=== PATIENT | male | born 1965 | race Caucasian/White ===

== ENCOUNTER 2017-04-24 02:21 | Emergency (ER) | payer OTHER ==
[2017-04-24 02:31] VITALS: BP 131/80; PULSE 98; TEMP 97.2; BMI 26.1
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
== END 2017-04-24 04:32 | disposition home or self-care (01) ==
LOC: JER 02:21
DX: S00.03XA Contusion of scalp, initial encounter (principal); W03.XXXA Other fall on same level due to collision with another person, initial encounter; Y93.89 Activity, other specified; Y92.59 Other trade areas as the place of occurrence of the external cause; Y99.8 Other external cause status; I10 Essential (primary) hypertension; E78.00 Pure hypercholesterolemia, unspecified
CPT/HCPCS: 70450-TC; 99281-25

== ENCOUNTER 2017-11-15 12:57 | Emergency (ER) | payer OTHER ==
[2017-11-15 13:06] VITALS: BMI 28.1
[2017-11-15] MEDS ORDERED: ACETAMINOPHEN 1000 MG/100 ML VIAL (NON FORMULARY) IVPB ONE (13:32)
--- NOTE | 2017-11-15 13:42 | PDOC ---
History of Present Illness - General Chief Complaint: Injury Stated Complaint: FALL,BACK PAIN Time Seen by Provider: 11/15/17 13:21 History Source: Patient Exam Limitations: No Limitations - History of Present Illness Initial Comments: 11/15/17 13:37 This is a 52 YOM with h/o HTN and HLD who p/w left and midline lower back pain worsening since yesterday when he suffered a fall from 4 ft up on a ladder, landing flat on his back on the long edge of a marble table and then falling to the floor, which occurred at about 3:30 pm. He has had worsening pain now up to 10/10 worst in the left lower back, exacerbated by changing position and walking. He denies any preceding symptoms and notes that he fell because the ladder began tipping backward. He was able to pick himself up after the incident and ambulate but this did cause him worsened pain. He has not been medically evaluated since then. He tried taking ibuprofen and Tylenol at home without pain relief, last doses were last night, and his pain kept him from sleeping last night. He denies any LOC, striking his head, headache, neck pain, shortness of breath (other than feeling like he had the wind knocked out of him just after the fall, which has since resolved), chest pain, abdominal pain, blood in the urine, n/t/w focally, or other symptoms. Past History - Past Medical History Allergies/Adverse Reactions: Allergies Allergy/AdvReac Type Severity Reaction Status Date / Time No Known Allergies Allergy Verified 11/15/17 13:02 Home Medications: Ambulatory Orders Atorvastatin Calcium 40 mg PO HS 11/15/17 Nebivolol [Bystolic -] 10 mg PO DAILY 11/15/17 Olmesartan Medoxomil [Benicar] 10 mg PO DAILY 11/15/17 Valsartan [Diovan] 160 mg PO DAILY 11/15/17 COPD: No DVT: No - Suicide/Smoking/Psychosocial Hx Smoking History: Current every day smoker Have you smoked in the past 12 months: Yes Number of Cigarettes Smoked Daily: 40 Information on smoking cessation initiated: Yes 'Breaking Loose' booklet given: 11/15/17 Hx Alcohol Use: No Drug/Substance Use Hx: No Substance Use Type: None Review of Systems - Review of Systems Able to Perform ROS?: Yes Constitutional: No: Chills, Fever, Unexplained wgt Loss HEENTM: No: Nose Congestion, Throat Pain Respiratory: No: Cough, Shortness of Breath Cardiac (ROS): No: Chest Pain, Palpitations ABD/GI: No: Constipated, Diarrhea, Nausea, Vomiting : No: Burning, Dysuria Musculoskeletal: Yes: Back Pain. No: Neck Pain Integumentary: Yes: Bruising. No: Rash Neurological: No: Headache, Numbness, Tingling, Weakness, Dizziness Endocrine: No: Unexplained Weight Gain, Unexplained Weight Loss *Physical Exam - Vital Signs Last Vital Signs Temp Pulse Resp BP Pulse Ox 99.1 F 69 18 136/84 100 11/15/17 13:03 11/15/17 13:03 11/15/17 13:03 11/15/17 13:11/15/17 13:03 - Physical Exam General Appearance: Yes: Nourished, Appropriately Dressed, Mild Distress, Other (pleasant adult male who appears mildly uncomfortable at rest and moderately uncomfortable when repositioning, answers questions appropriately, accompanied by daughter) HEENT: positive: EOMI, NEAL, Normal Voice, Hearing Grossly Normal, Other (no scalp contusion, no cephalohematoma, no scalp laceration, no raccoon eyes, no hester sign, no hemotympanum, no CSF rhinorrhea/otorrhea). negative: Scleral Icterus (R), Scleral Icterus (L), Nasal Congestion Neck: positive: Trachea midline, Supple. negative: Tender, Rigid Respiratory/Chest: positive: Lungs Clear, Normal Breath Sounds. negative: Respiratory Distress, Decreased Breath Sounds, Crackles, Rhonchi, Stridor, Wheezing Cardiovascular: positive: Regular Rhythm, Regular Rate, S1, S2. negative: Edema , JVD, Murmur Gastrointestinal/Abdominal: positive: Normal Bowel Sounds, Soft, Other (pelvis stable). negative: Tender, Organomegaly, Pulsatile Mass, Distended, Guarding Musculoskeletal: positive: Normal Inspection, Decreased Range of Motion (lumbar) , Other (no stepoff or deformity). negative: Vertebral Tenderness Extremity: positive: Normal Capillary Refill, Normal Inspection, Normal Range of Motion. negative: Tender, Cyanosis Integumentary: positive: Normal Color, Dry, Warm, Ecchymosis (left inferior flank developing ecchymosis over a 12x7 cm area extending to the midline, also there is about a 12x8 cm area of superficial skin avulsion with linear excoriations to the superior lumbar back overlying both the left and right paraspinous area and the midline). negative: Erythema, Rash Neurologic: positive: personnel arbitrator II-XII NML intact, Fully Oriented, Alert, Normal Mood/ Affect, Normal Response, Motor Strength 5/5, Finger to Nose, Other (moving all extremities). negative: EOM Palsy, Facial Droop, Numbness, Sensory Deficit, Confused, Disoriented ED Treatment Course - LABORATORY CBC & Chemistry Diagram: 11/15/17 14:00 11/15/17 13:32 - RADIOLOGY Radiology Studies Ordered: Category Date Time Status CHEST PA & LAT [RAD] Stat Radiology 11/15/17 13:35 Ordered SPINE-LUMBAR SACRAL [RAD] Stat Radiology 11/15/17 13:35 Ordered SPINE-THORACIC [RAD] Stat Radiology 11/15/17 13:35 Ordered Medical Decision Making - Medical Decision Making Adult male Pt p/w physical trauma. Initial Vital Signs Temp Pulse Resp BP Pulse Ox 99.1 F 69 18 136/84 100 11/15/17 13:03 11/15/17 13:03 11/15/17 13:03 11/15/17 13:03 11/15/17 13:03 Exam: As noted in Physical Exam section. DDX IBNLT: Spinal fracture or dislocation, renal laceration or contusion, blunt abdominal or chest trauma, sacral or pelvis fracture, rib fracture, simple back contusion with skin avulsion/road rash, etc. W/U ordered: CT chest/abdomen/pelvis, CT recons C/T/L spine, labs as noted below TX ordered: Ofirmev EKG: Reviewed; results as noted in ECG Review section. 11/15/17 15:17 Patient still unable to give urine sample. 1 liter IVF ordered. Reassessment: Patient states somewhat improved after Tylenol but some residual. 11/15/17 16:10 On initial read of the CT studies the patient has two left inferior posterior rib fxr and one inferior lateral rib fxr. No flail chest; no ribs with multiple fxr in one single rib. Also on CT studies there are three areas concerning for left lateral process fractures. We have spoken with [facility] neurosurgeon Jean Avila who reviews CT C/T/L spine images and recommends MRI. BAKARI lai calls to MRI and [facility] Radiologist for approval. 2 mg morphine IV push given as patient notes continued pain. CT C/A/P: IMPRESSION: 1. Mild chronic lung disease with no acute pathology of the chest. 2. No acute pathology within the abdomen or pelvis. Limited study as described above. Per the ED team's read of the study: there are left posterior 11th and 12th rib fractures and a left lateral 10th rib fracture at the mid- to posterior- axillary line. CT C/T/L spine: IMPRESSION: 1. Normal CT scan of the cervical spine with no fracture or acute pathology. 2. Fracture anterior portion of the T12 vertebral body with no significant displacement of fracture fragments. The fracture does not extend posteriorly into the spinal canal. 3. Fractures of the left transverse processes of T 12 and L1. 4. Fractures of the left posterior 11th and 12th ribs. 11/15/17 16:49 Dr. Mckeon [facility] radiologist called, we spoke about Dr. Avila's recommendation , MRI approved by Radiologist. Laboratory Tests 11/15/17 11/15/17 11/15/17 13:32 14:00 16:25 WBC 10.4 H RBC 4.71 Hgb 15.0 Hct 44.0 MCV 93.4 MCH 31.8 MCHC 34.0 RDW 13.3 Plt Count 248 MPV 8.4 Absolute Neuts (auto) 7.5 Neutrophils % 72.6 Lymphocytes % 17.2 Monocytes % 9.5 Eosinophils % 0.3 Basophils % 0.4 Nucleated RBC % 0 Sodium 139 Potassium 4.2 Chloride 105 Carbon Dioxide 25 Anion Gap 9 BUN 15 Creatinine 0.7 Creat Clearance w eGFR > 60 Random Glucose 105 Calcium 8.7 Total Bilirubin 1.1 H AST 27 ALT 31 Alkaline Phosphatase 93 Creatine Kinase 281 Creatine Kinase Index 0.7 CK-MB (CK-2) 2.02 Troponin I < 0.02 Total Protein 7.2 Albumin 3.6 Urine Color Dkyellow Urine Appearance Clear Urine pH 5.0 Ur Specific [place] 1.036 H Urine Protein Negative Urine Glucose (UA) Negative Urine Ketones Negative Urine Blood Negative Urine Nitrite Negative Urine Bilirubin Negative Urine Urobilinogen 2.0 Ur Leukocyte Esterase Negative Completed MRI questionnaire, patient has only titanium screws in elbow. Spoke with EM Bobo who is on his way to [facility]. Patient's care endorsed to oncoming resident Donovan Melgar at the end of my shift pending MRI. Dr. Melgar will further consult with Dr. Avila when MRI results. *DC/Admit/Observation/Transfer Diagnosis at time of Disposition: Multiple transverse process fractures Fall from ladder Qualifiers: Encounter type: initial encounter Qualified Code(s): W11.XXXA - Fall on and from ladder, initial encounter Back contusion Qualifiers: Encounter type: initial encounter Laterality: left Qualified Code(s): S20.222A - Contusion of left back wall of thorax, initial encounter Multiple rib fractures Qualifiers: Encounter type: initial encounter Fracture type: closed Laterality: right Qualified Code(s): S22.41XA - Multiple fractures of ribs, right side, initial encounter for closed fracture - Discharge Dispostion Condition at time of disposition: Stable - Referrals Referrals: Jose Rubio MD [Primary Care Provider] - Jean Collins MD, FAANS [Staff Physician] - - Patient Instructions Additional Instructions: You were seen in the ED and admitted for the assessment of your spine and rib injuries. A CT scan showed fractures of your spine at the T12 and L1 levels as well as fractures of the 11th and 12th ribs. An MRI was done and showed that these fractures are not pushing on your spinal cord. We have consulted with a neurosurgeon, Dr. Collins, who believes that these fractures are not dangerous enough to keep you in the hospital. You may take ibuprofen or Tylenol for the pain. Please resume taking the rest of your home medications as prescribed. Please follow up with Dr. Collins in his office within one week to discuss the possible treatments for your fractures, if there are any. Please follow up with your primary care physician within one week of discharge. You should refrain from heavy lifting, strenuous exercise or use of ladders until you see Dr. Collins. If you begin to experience worsening pain, loss of bowel or bladder function, lower extremity weakness or numbness or if any of your symptoms get worse, please call your doctor or return to the emergency department. - Post Discharge Activity
[2017-11-15] MEDS ORDERED: ACETAMINOPHEN INJECTION 100 ML IVPB ONE (13:48)
[2017-11-15 14:12] LABS: BASO % 0.4 % (0-2.0); EOS % 0.3 % (0-4.5); LYMPH % 17.2 % (8-40); MCH 31.8 pg (25.7-33.7); MEAN CELL VOLUME 93.4 fl (80-96); MEAN PLT VOLUME 8.4 fl (7.5-11.1); MONO % 9.5 % (3.8-10.2); NEUT % 72.6 % (42.8-82.8); PLATELET COUNT 248 K/MM3 (134-434); RBC 4.71 M/mm3 (4.00-5.60); RDW 13.3 % (11.9-15.9); WHITE BLOOD COUNT 10.4 K/mm3 (4.0-10.0)
[2017-11-15 14:30] LABS: ALBUMIN 3.6 g/dl (3.4-5.0); ANION GAP 9 MMOL/L (8-16); BILIRUBIN,TOTAL 1.1 mg/dL (0.2-1.0); BLOOD UREA NITROGEN 15 mg/dL (7-18); CALCIUM 8.7 mg/dL (8.5-10.1); CHLORIDE 105 mmol/L (98-107); CO2 25 mmol/L (21-32); CREATININE 0.7 mg/dL (0.7-1.3); GLUCOSE,RANDOM 105 mg/dL (74-106); POTASSIUM 4.2 mmol/L (3.5-5.1); SGOT/AST 27 U/L (15-37); SGPT/ALT 31 U/L (12-78); SODIUM 139 mmol/L (136-145); TOT PROT 7.2 g/dl (6.4-8.2)
[2017-11-15 14:32] LABS: ALK PHOS 93 U/L (45-117)
--- NOTE | 2017-11-15 14:39 | PDOC ---
Attending Attestation - Resident Resident Name: Federica Rasheed - ED Attending Attestation I have performed the following: I have examined & evaluated the patient, The case was reviewed & discussed with the resident, I agree w/resident's findings & plan, Exceptions are as noted - HPI HPI: 52 yo M presents s/p fall 4 feet onto a granite countertop from a ladder. He was trying to reach something and the ladder began to tip. C/o pain to L mid- back, worse with any movement. He [place] seek [place] He presents today due to pain and difficulty sleeping. - Physicial Exam PE: GENERAL: Awake, alert, and fully oriented, in no acute distress HEAD: No signs of trauma EYES: PERRLA, EOMI, sclera anicteric, conjunctiva clear ENT: Auricles normal inspection, hearing grossly normal, nares patent, oropharynx clear without exudates. Moist mucosa NECK: Normal ROM, supple, no lymphadenopathy, JVD, or masses LUNGS: Breath sounds equal, clear to auscultation bilaterally. No wheezes, and no crackles HEART: Regular rate and rhythm, normal S1 and S2, no murmurs, rubs or gallops ABDOMEN: Soft, nontender, normoactive bowel sounds. No guarding, no rebound. No masses MSK: +Midline tenderness to lower thoracic and upper lumbar spine. +Large ecchymotic area to L flank. Extremities with normal range of motion, no edema. No clubbing or cyanosis. No cords, erythema, or tenderness NEUROLOGICAL: Cranial nerves II through XII grossly intact. Normal speech, normal gait. Motor and sensation intact. SKIN: Warm, Dry, normal turgor, no rashes or lesions noted. - Medical Decision Making CT chest, a/p, and c/t/l-spine obtained based on mechanism. Found to have 3 rib fractures (no flail chest) and 2 transverse process fx to spine. Spinal fx discussed with Dr. Collins, recommended MRI to evaluate the disk. For rib fractures, incentive spirometer and pain medication.
[2017-11-15] MEDS ORDERED: SODIUM CHLORIDE 0.9% 500 ML INFUS.BAG IV ONE (15:14)
[2017-11-15] MEDS ORDERED: morphine CARPU-JECT 4 MG/1 ML DISP.SYRIN IVPUSH ONE (16:35)
[2017-11-15] MEDS ORDERED: MORPHINE SULFATE 2 MG/ML VIAL ONE (16:39)
[2017-11-15 16:43] LABS: URINE APPEARANCE CLEAR; URINE BILIRUBIN NEGATIVE (<2.0 mg/dL); URINE COLOR DKYELLOW; URINE GLUCOSE (UA) NEGATIVE (NEGATIVE); URINE KETONE NEGATIVE (NEGATIVE); URINE LEUK ESTERASE NEGATIVE (NEGATIVE); URINE NITRITE NEGATIVE (NEGATIVE); URINE PROTEIN NEGATIVE (NEGATIVE)
--- NOTE | 2017-11-15 19:00 | PDOC ---
*Physical Exam - Vital Signs Last Vital Signs Temp Pulse Resp BP Pulse Ox 99.1 F 60 19 154/88 100 11/15/17 13:03 11/15/17 16:58 11/15/17 16:58 11/15/17 16:58 11/15/17 16:58 <Hunter Yap - Last Filed: 11/15/17 21:16> - Vital Signs Last Vital Signs Temp Pulse Resp BP Pulse Ox 99.1 F 60 19 154/88 100 11/15/17 13:03 11/15/17 16:58 11/15/17 16:58 11/15/17 16:58 11/15/17 16:58 <Dominik Melgar - Last Filed: 11/15/17 21:57> ED Treatment Course - LABORATORY CBC & Chemistry Diagram: 11/15/17 14:00 11/15/17 13:32 - ADDITIONAL ORDERS Additional order review: Laboratory Results 11/15/17 11/15/17 16:25 13:32 Sodium 139 Potassium 4.2 Chloride 105 Carbon Dioxide 25 Anion Gap 9 BUN 15 Creatinine 0.7 Creat Clearance w eGFR > 60 Random Glucose 105 Calcium 8.7 Total Bilirubin 1.1 H AST 27 ALT 31 Alkaline Phosphatase 93 Creatine Kinase 281 Creatine Kinase Index 0.7 CK-MB (CK-2) 2.02 Troponin I < 0.02 Total Protein 7.2 Albumin 3.6 Urine Color Dkyellow Urine Appearance Clear Urine pH 5.0 Ur Specific [place] 1.036 H Urine Protein Negative Urine Glucose (UA) Negative Urine Ketones Negative Urine Blood Negative Urine Nitrite Negative Urine Bilirubin Negative Urine Urobilinogen 2.0 Ur Leukocyte Esterase Negative 11/15/17 14:00 RBC 4.71 MCV 93.4 MCHC 34.0 RDW 13.3 MPV 8.4 Neutrophils % 72.6 Lymphocytes % 17.2 Monocytes % 9.5 Eosinophils % 0.3 Basophils % 0.4 - Medications Given in the ED: ED Medications Discontinued Medications Generic Name Dose Route Start Last Admin Trade Name Freq PRN Reason Stop Dose Admin Acetaminophen 1,000 mg 11/15/17 13:32 11/15/17 14:04 Ofirmev Injection - IVPB 11/15/17 13:33 1,000 mg ONCE ONE Administration Morphine Sulfate 2 mg 11/15/17 16:35 11/15/17 16:43 Morphine Injection - IVPUSH 11/15/17 16:36 2 mg ONCE ONE Administration Sodium Chloride 1,000 ml 11/15/17 15:14 11/15/17 15:21 Normal Saline - IV 11/15/17 15:15 1,000 ml ONCE ONE Administration <Hunter Yap - Last Filed: 11/15/17 21:16> - LABORATORY CBC & Chemistry Diagram: 11/15/17 14:00 11/15/17 13:32 - ADDITIONAL ORDERS Additional order review: Laboratory Results 11/15/17 11/15/17 16:25 13:32 Sodium 139 Potassium 4.2 Chloride 105 Carbon Dioxide 25 Anion Gap 9 BUN 15 Creatinine 0.7 Creat Clearance w eGFR > 60 Random Glucose 105 Calcium 8.7 Total Bilirubin 1.1 H AST 27 ALT 31 Alkaline Phosphatase 93 Creatine Kinase 281 Creatine Kinase Index 0.7 CK-MB (CK-2) 2.02 Troponin I < 0.02 Total Protein 7.2 Albumin 3.6 Urine Color Dkyellow Urine Appearance Clear Urine pH 5.0 Ur Specific [place] 1.036 H Urine Protein Negative Urine Glucose (UA) Negative Urine Ketones Negative Urine Blood Negative Urine Nitrite Negative Urine Bilirubin Negative Urine Urobilinogen 2.0 Ur Leukocyte Esterase Negative 11/15/17 14:00 RBC 4.71 MCV 93.4 MCHC 34.0 RDW 13.3 MPV 8.4 Neutrophils % 72.6 Lymphocytes % 17.2 Monocytes % 9.5 Eosinophils % 0.3 Basophils % 0.4 - Medications Given in the ED: ED Medications Discontinued Medications Generic Name Dose Route Start Last Admin Trade Name Wyatt PRN Reason Stop Dose Admin Acetaminophen 1,000 mg 11/15/17 13:32 11/15/17 14:04 Ofirmev Injection - IVPB 11/15/17 13:33 1,000 mg ONCE ONE Administration Morphine Sulfate 2 mg 11/15/17 16:35 11/15/17 16:43 Morphine Injection - IVPUSH 11/15/17 16:36 2 mg ONCE ONE Administration Sodium Chloride 1,000 ml 11/15/17 15:14 11/15/17 15:21 Normal Saline - IV 11/15/17 15:15 1,000 ml ONCE ONE Administration <Dominik Melgar - Last Filed: 11/15/17 21:57> Medical Decision Making - Medical Decision Making 11/15/17 21:[address] Farhan Collins, neurosurgeon front office administrator, awaiting call back. <Hunter Yap - Last Filed: 11/15/17 21:16> - Medical Decision Making 11/15/17 19:[address] Kitchen. Patient is a 52M with history of HTN and HLD here today with multiple rib fractures and traverse process fracture. Pending MRI and Dr Avila consult for final dispo. 11/15/17 21:42 Multiple attempts to reach Dr Collins for final dispo. Service and contacted. 11/15/17 21:53 Dr Collins contacted. Patient is good for discharge as long as pain is controlled. Will follow as outpatient. Pending discharge from medicine team for ED OBS. <Dominik Melgar - Last Filed: 11/15/17 21:57> *DC/Admit/Observation/Transfer - Attestations Scribe Attestion: 11/15/17 21:16 Documentation prepared by Hunter Yap, acting as medical device sales representative for Samantha Rivera MD. <Hunter Yap - Last Filed: 11/15/17 21:16> <Dominik Melgar - Last Filed: 11/15/17 21:57> Diagnosis at time of Disposition: Multiple transverse process fractures Fall from ladder Qualifiers: Encounter type: initial encounter Qualified Code(s): W11.XXXA - Fall on and from ladder, initial encounter Back contusion Qualifiers: Encounter type: initial encounter Laterality: left Qualified Code(s): S20.222A - Contusion of left back wall of thorax, initial encounter Multiple rib fractures Qualifiers: Encounter type: initial encounter Fracture type: closed Laterality: right Qualified Code(s): S22.41XA - Multiple fractures of ribs, right side, initial encounter for closed fracture - Discharge Dispostion Condition at time of disposition: Guarded - Referrals Referrals: Jose Rubio MD [Primary Care Provider] - - Patient Instructions Additional Instructions: You were seen in the ER for a traumatic injury. We took CT scans which showed no new problems. We did lab work on your blood and urine and there were no concerning findings. After our assessment, we do not believe you are having a medical emergency any longer at this time, and we believe you are safe to go home. Take Motrin and Tylenol as needed for pain. Follow up with your PCP in the next 1-3 days. Please follow up with the orthopedist clinic if you have worsening pain (we are providing referral information in this information packet ). Please come back to the ER at any time, 24 hours a day, for any new or worsening symptoms, especially severe pain or hand numbness and tingling. If you are having symptoms that make it unsafe to drive, please call 911. - Post Discharge Activity
--- NOTE | 2017-11-15 21:32 | PDOC ---
*Physical Exam - Vital Signs Last Vital Signs Temp Pulse Resp BP Pulse Ox 99.1 F 60 19 154/88 100 11/15/17 13:03 11/15/17 16:58 11/15/17 16:58 11/15/17 16:58 11/15/17 16:58 ED Treatment Course - LABORATORY CBC & Chemistry Diagram: 11/15/17 14:00 11/15/17 13:32 - ADDITIONAL ORDERS Additional order review: Laboratory Results 11/15/17 11/15/17 16:25 13:32 Sodium 139 Potassium 4.2 Chloride 105 Carbon Dioxide 25 Anion Gap 9 BUN 15 Creatinine 0.7 Creat Clearance w eGFR > 60 Random Glucose 105 Calcium 8.7 Total Bilirubin 1.1 H AST 27 ALT 31 Alkaline Phosphatase 93 Creatine Kinase 281 Creatine Kinase Index 0.7 CK-MB (CK-2) 2.02 Troponin I < 0.02 Total Protein 7.2 Albumin 3.6 Urine Color Dkyellow Urine Appearance Clear Urine pH 5.0 Ur Specific [place] 1.036 H Urine Protein Negative Urine Glucose (UA) Negative Urine Ketones Negative Urine Blood Negative Urine Nitrite Negative Urine Bilirubin Negative Urine Urobilinogen 2.0 Ur Leukocyte Esterase Negative 11/15/17 14:00 RBC 4.71 MCV 93.4 MCHC 34.0 RDW 13.3 MPV 8.4 Neutrophils % 72.6 Lymphocytes % 17.2 Monocytes % 9.5 Eosinophils % 0.3 Basophils % 0.4 - Medications Given in the ED: ED Medications Discontinued Medications Generic Name Dose Route Start Last Admin Trade Name [place]att PRN Reason Stop Dose Admin Acetaminophen 1,000 mg 11/15/17 13:32 11/15/17 14:04 Ofirmev Injection - IVPB 11/15/17 13:33 1,000 mg ONCE ONE Administration Morphine Sulfate 2 mg 11/15/17 16:35 11/15/17 16:43 Morphine Injection - IVPUSH 11/15/17 16:36 2 mg ONCE ONE Administration Sodium Chloride 1,000 ml 11/15/17 15:14 11/15/17 15:21 Normal Saline - IV 11/15/17 15:15 1,000 ml ONCE ONE Administration Medical Decision Making - Medical Decision Making 11/15/17 21:29 Received sign out from Dr. Monsivais pending MRI imaging. in summary, 52 YOM s/ p fall from ladder c/o chest and back pain. CT [place] scans with T spinous process fx, left posterior rib fx x2 NSG consult with Dr. Collins - requested MRI to eval for spinal cord injury/ pathology and elucidation of Spine fractures. nonurgent management, may followup as outpatient. Rib fx management - analgesia and IS, breathing exercises. MRI T and L spine results 930pm: acute nondisplaced anterior superior end plate fx of T12 w/o compression or deformity. degenerative spondylosis, small left central paracentral disc protrusion at T7-8 with mild cord compression, otherwise no spinal cord myelopathy changes. L spine spondylosis and DDD, small central disc protrusion at L4-5. dispo: ED observation, past 8 hours so admitted to hospitalist, seen by team and Dr. Pulido team. 11/15/17 22:18 11/15/17 22:33 *DC/Admit/Observation/Transfer Diagnosis at time of Disposition: Multiple transverse process fractures Fall from ladder Qualifiers: Encounter type: initial encounter Qualified Code(s): W11.XXXA - Fall on and from ladder, initial encounter Back contusion Qualifiers: Encounter type: initial encounter Laterality: left Qualified Code(s): S20.222A - Contusion of left back wall of thorax, initial encounter Multiple rib fractures Qualifiers: Encounter type: initial encounter Fracture type: closed Laterality: right Qualified Code(s): S22.41XA - Multiple fractures of ribs, right side, initial encounter for closed fracture - Discharge Dispostion Condition at time of disposition: Stable - Referrals - Patient Instructions - Post Discharge Activity
--- NOTE | 2017-11-15 22:09 | PN ---
Teaching Attending Note Name of Resident: Shefali Phillips ATTENDING PHYSICIAN STATEMENT I saw and evaluated the patient. I reviewed the resident's note and discussed the case with the resident. I agree with the resident's findings and plan as documented. SUBJECTIVE: Patient is a 52 year old man with history of tobacco use, HTN and HLD who presents with left and midline lower back pain after falling off a ladder that slipped from a counter top yesterday in the [facility]. Pain has been worsening since yesterday. He landed flat on his back on the long edge of a marble table and then falling to the floor - had the "wind" knocked out of him but didnot loose consciousness and did not hit his head. Pain now up to 10/10 worst in the left lower back, exacerbated by changing position and walking. He was able to pick himself up after the incident and ambulate but this did cause him worsened pain. He could get to a hospital yesterday and his family picked up from the [facility]. He took ibuprofen and Tylenol at home without pain relief. At this time he has pain but no headache, neck pain, shortness of breath, chest pain, abdominal pain, blood in the urine, vomiting, urinary or fecal incontinence. In the ER, CT [place] scans showed with T spinous process fracture, and 2 rib fractures. MRI T and L spine showed; acute nondisplaced anterior superior end plate fracture of T12 without compression or deformity; degenerative spondylosis , small left central paracentral disc protrusion at T7-8 with mild cord compression, otherwise no spinal cord myelopathy changes. L spine spondylosis and DDD, small central disc protrusion at L4-5. ER staff spoke to the Neurosurgeon Dr. Collins - who says patient can be discharged to follow up in the office. OBJECTIVE: Alert Vital Signs Period Temp Pulse Resp BP Sys/Hobson Pulse Ox Last 24 Hr 98.2 F-99.1 F 60-74 18-20 136-154/82-88 98-100 HEENT: No Jaundice, eye redness or discharge, PERRLA, EOMI. Normocephalic, atraumatic. External ears are normal and hearing is grossly intact. No nasal discharge. Neck: Supple, nontender. No palpable adenopathy or thyromegaly. No JVD Chest: Good effort. Clear to auscultation and percussion. Bruisies on the back in the lower chest and lumbar areas - tender - no swelling. Heart: Regular. No S3, rub or murmur Abdomen: Not distended, soft, nontender and no HSM. No rebound or guarding. Normoactive bowel sounds. Ext: Peripheral pulses intact. No leg edema. Skin: Warm and dry. No petechiae, rash or ecchymosis. Neuro: Alert. Oriented x3. CN 2-12 grossly intact. Sensation grossly intact in all four extremities and DTR are symmetric. Home Medications Medication Instructions Recorded Atorvastatin Calcium 40 mg PO HS 11/15/17 Nebivolol [Bystolic -] 10 mg PO DAILY 11/15/17 Olmesartan Medoxomil [Benicar] 10 mg PO DAILY 11/15/17 Valsartan [Diovan] 160 mg PO DAILY 11/15/17 Abnormal Lab Results 11/15/17 11/15/17 11/15/17 13:32 14:00 16:25 WBC 10.4 H Total Bilirubin 1.1 H Ur Specific [place] 1.036 H ASSESSMENT AND PLAN: 1. Fall - Trauma to the back with rib and vertebral fractures. Patient being discharged. To follow up with neurosurgeon and his PCP. Tylenol and warm compress for pain. Asked to return to the ER if symptoms worsen or any new symptoms like SOB emerge. 2. Tobacco Use We will provide patient all the necessary assistance to facilitate smoking cessation and prescribe Nicotine patch. 3. Advance directives - Full code
[2017-11-15 22:53] VITALS: BP 136/82; PULSE 72; TEMP 98.2
--- NOTE | 2017-11-15 23:18 | HP ---
CHIEF COMPLAINT: Back pain s/p trauma PCP: Dr. Rubio HISTORY OF PRESENT ILLNESS: The patient is a 52 yo m w/ PMH HTN and HLD who comes to the ED c/o left flank and back pain since falling from a ladder yesterday. The patient was working in his backyard on a ladder which was placed on the top of a counter. The ladder slipped out from underhim and he fell, striking his back and side on a marble countertop before falling to the floor. Patient denies head trauma or LOC. The patient was able to ambulate after the fall, but decided to seek medical attention when OTC Ibuprofen and tylenol did not relieve the pain. The patient denies chest pain, SOB, abdominal pain, loss of bowel or bladder function, lower extremity weakness or tingling. ER course was notable for: (1) CT showing transverse vertebral body fractures at T12 and L1, MRI showing the same without displacement or nerve impingement. Recent Travel: none PAST MEDICAL HISTORY: see HPI PAST SURGICAL HISTORY: denies Social History: Smoking: current everyday smoker Alcohol: social Drugs: denies Family History: non-contributory Allergies No Known Allergies Allergy (Verified 11/15/17 13:02) HOME MEDICATIONS: Home Medications Medication Instructions Recorded Atorvastatin Calcium 40 mg PO HS 11/15/17 Nebivolol [Bystolic -] 10 mg PO DAILY 11/15/17 Olmesartan Medoxomil [Benicar] 10 mg PO DAILY 11/15/17 Valsartan [Diovan] 160 mg PO DAILY 11/15/17 REVIEW OF SYSTEMS CONSTITUTIONAL: Absent: fever, chills, diaphoresis, generalized weakness, malaise, loss of appetite, weight change HEENT: Absent: rhinorrhea, nasal congestion, throat pain, throat swelling, difficulty swallowing, mouth swelling, ear pain, eye pain, visual changes CARDIOVASCULAR: Absent: chest pain, syncope, palpitations, irregular heart rate, lightheadedness , peripheral edema RESPIRATORY: Absent: cough, shortness of breath, dyspnea with exertion, orthopnea, wheezing, stridor, hemoptysis GASTROINTESTINAL: Absent: abdominal pain, abdominal distension, nausea, vomiting, diarrhea, constipation, melena, hematochezia GENITOURINARY: Absent: dysuria, frequency, urgency, hesitancy, hematuria, flank pain, genital pain MUSCULOSKELETAL: Absent: myalgia, arthralgia, joint swelling, neck pain SKIN: Absent: rash, itching, pallor HEMATOLOGIC/IMMUNOLOGIC: Absent: easy bleeding, easy bruising, lymphadenopathy, frequent infections ENDOCRINE: Absent: unexplained weight gain, unexplained weight loss, heat intolerance, cold intolerance NEUROLOGIC: Absent: headache, focal weakness or paresthesias, dizziness, unsteady gait, seizure, mental status changes, bladder or bowel incontinence PSYCHIATRIC: Absent: anxiety, depression, suicidal or homicidal ideation, hallucinations. PHYSICAL EXAMINATION Vital Signs - 24 hr 11/15/17 11/15/17 11/15/17 13:03 16:58 19:05 Temperature 99.1 F 98.8 F Pulse Rate 69 Pulse Rate [ 60 74 Right Brachial] Respiratory 18 19 18 Rate Blood Pressure 136/84 Blood Pressure 154/88 138/88 [Right Arm] O2 Sat by Pulse 100 100 98 Oximetry (%) 11/15/17 22:52 Temperature 98.2 F Pulse Rate Pulse Rate [ 72 Right Brachial] Respiratory 20 Rate Blood Pressure Blood Pressure 136/82 [Right Arm] O2 Sat by Pulse 100 Oximetry (%) GENERAL: Awake, alert, and fully oriented, in no acute distress. HEAD: Normal with no signs of trauma. EYES: Pupils equal, round and reactive to light, extraocular movements intact, sclera anicteric, conjunctiva clear. No lid lag. EARS, NOSE, THROAT: oropharynx clear without exudates. Moist mucous membranes. NECK: Normal range of motion, supple without lymphadenopathy, JVD, or masses. LUNGS: Breath sounds equal, clear to auscultation bilaterally. No wheezes, and no crackles. No accessory muscle use. HEART: Regular rate and rhythm, normal S1 and S2 without murmur, rub or gallop. ABDOMEN: Soft, nontender, not distended, normoactive bowel sounds, no guarding, no rebound, no masses. No hepatomegaly or splenomegaly. MUSCULOSKELETAL: Normal range of motion at all joints. No bony deformities or tenderness. No CVA tenderness. UPPER EXTREMITIES: 2+ pulses, warm, well-perfused. No cyanosis. No clubbing. No peripheral edema. LOWER EXTREMITIES: 2+ pulses, warm, well-perfused. No calf tenderness. No peripheral edema. NEUROLOGICAL: Cranial nerves II-XII intact. Normal speech. Normal gait. Strength 5/5 in all 4 extremities. Sensation intact b/l in all dermatomes. PSYCHIATRIC: Cooperative. Good eye contact. Appropriate mood and affect. SKIN: Warm, dry, normal turgor, no rashes or lesions noted, normal capillary refill. Laboratory Results - last 24 hr 11/15/17 11/15/17 11/15/17 13:32 14:00 16:25 WBC 10.4 H RBC 4.71 Hgb 15.0 Hct 44.0 MCV 93.4 MCH 31.8 MCHC 34.0 RDW 13.3 Plt Count 248 MPV 8.4 Absolute Neuts (auto) 7.5 Neutrophils % 72.6 Lymphocytes % 17.2 Monocytes % 9.5 Eosinophils % 0.3 Basophils % 0.4 Nucleated RBC % 0 Sodium 139 Potassium 4.2 Chloride 105 Carbon Dioxide 25 Anion Gap 9 BUN 15 Creatinine 0.7 Creat Clearance w eGFR > 60 Random Glucose 105 Calcium 8.7 Total Bilirubin 1.1 H AST 27 ALT 31 Alkaline Phosphatase 93 Creatine Kinase 281 Creatine Kinase Index 0.7 CK-MB (CK-2) 2.02 Troponin I < 0.02 Total Protein 7.2 Albumin 3.6 Urine Color Dkyellow Urine Appearance Clear Urine pH 5.0 Ur Specific [place] 1.036 H Urine Protein Negative Urine Glucose (UA) Negative Urine Ketones Negative Urine Blood Negative Urine Nitrite Negative Urine Bilirubin Negative Urine Urobilinogen 2.0 Ur Leukocyte Esterase Negative ASSESSMENT/PLAN: The patient is a 52 yo m w/ PMH HTN, HLD who comes into the ED c/o back and side pain s/p fall found to have rib and transverse spinal fractures. #Back and side pain 2/2 rib and spinal fractures -no alarm symptoms present at this time. -MRI shows no cord or nerve impingement. -Neurosurgery consult #Dispo -Patient admitted for observation pending neurosurgical evaluation -Dr. Collins consulted from the ED and has cleared the patient for DC after reviewing CT and MR imaging. -will DC home with close neurosurgery follow up Visit type - Emergency Visit Emergency Visit: Yes ED Registration Date: 11/15/17 Care time: The patient presented to the Emergency Department on the above date and was hospitalized for further evaluation of their emergent condition. - New Patient This patient is new to me today: Yes Date on this admission: 11/15/17 - Critical Care Critical Care patient: No Hospitalist Screening - Colonoscopy Questionnaire Colonoscopy Questionnaire: Colonoscopy Questionnaire - Patient: 50 - 75 years old and never had a screening colonoscopy: Unknown History of colon or rectal polyps, or CA: Unknown History of IBD, Crohn's disease or UC: Unknown History of abdominal radiation therapy as a child: Unknown - Relative: 1 with colon or rectal CA, or polyps at age 60 or younger: Unknown Colon or rectal CA diagnosed at age 45 or younger: Unknown Multiple relatives with colon or rectal CA: Unknown - Outcome: Screening Result: Negative Screen
--- NOTE | 2017-11-15 23:56 | DS ---
Physical Exam: SUBJECTIVE: Patient seen and examined at bedside. Patient's pain is controlled and he has no new complaints. No LE weakness at this time. OBJECTIVE: Please see H&P from 11/15 for physical exam. HOSPITAL COURSE: Date of Admission:11/15/17 The patient is a 52 yo m w/ PMH HTN and HLD who came to the ED c/o left flank and back pain since falling from a ladder yesterday. The patient was working in his backyard on a ladder which was placed on the top of a counter. The ladder slipped out from under him and he fell, striking his back and side on a marble counter top before falling to the floor. Patient denies head trauma or LOC. The patient was able to ambulate after the fall, but decided to seek medical attention when OTC Ibuprofen and tylenol did not relieve the pain. The patient denies chest pain, SOB, abdominal pain, loss of bowel or bladder function, lower extremity weakness or tingling. In the ED, the patient was hemodynamically stable. CT of the Head, abdomen and c-spine did not show any acute fractures. CT of the chest showed fractures of the 11th and 12th ribs. CT of the thoracic and lumbar spine showed transverse fractures at T12 and L1 without displacement. The patient was admitted for observation pending neurosurgical evaluation. Dr. Collins was consulted form the ED. He suggested MRI of the spine to further investigate. The patient's pain was controlled with percocet, morphine and IV acetaminophen. MRI of the spine showed T12 and L1 transverse fractures without displacement, nerve impingement or cord compression. The CT and MRI results were reviewed with Dr. Collins, who saw no indicated acute intervention and cleared the patient for discharge. The patient was discharged home with instructions to follow up with his PCP and Dr. Collins within one week of discharge home. He was advised to return to the ED if his symptoms got worse or if he developed signs of cord compression or cauda equina syndrome. Date of Discharge: 11/15/17 Minutes to complete discharge: 40 Discharge Summary Reason For Visit: FRACTURE, RIBS,FALL Current Active Problems Back contusion (Acute) Fall from ladder (Acute) Multiple rib fractures (Acute) Multiple transverse process fractures (Acute) Condition: Improved - Instructions Diet, Activity, Other Instructions: You were seen in the ED and admitted for the assessment of your spine and rib injuries. A CT scan showed fractures of your spine at the T12 and L1 levels as well as fractures of the 11th and 12th ribs. An MRI was done and showed that these fractures are not pushing on your spinal cord. We have consulted with a neurosurgeon, Dr. Collins, who believes that these fractures are not dangerous enough to keep you in the hospital. You may take ibuprofen or Tylenol for the pain. Please resume taking the rest of your home medications as prescribed. Please follow up with Dr. Collins in his office within one week to discuss the possible treatments for your fractures, if there are any. Please follow up with your primary care physician within one week of discharge. You should refrain from heavy lifting, strenuous exercise or use of ladders until you see Dr. Collins. If you begin to experience worsening pain, loss of bowel or bladder function, lower extremity weakness or numbness or if any of your symptoms get worse, please call your doctor or return to the emergency department. Referrals: Jose Rubio MD [Primary Care Provider] - Jean Collins MD, FAANS [Staff Physician] - Disposition: HOME - Home Medications Comprehensive Discharge Medication List: Ambulatory Orders Atorvastatin Calcium 40 mg PO HS 11/15/17 Nebivolol [Bystolic -] 10 mg PO DAILY 11/15/17 Olmesartan Medoxomil [Benicar] 10 mg PO DAILY 11/15/17 Valsartan [Diovan] 160 mg PO DAILY 11/15/17 This patient is new to me today: Yes Date on this admission: 11/16/17 Emergency Visit: Yes ED Registration Date: 11/15/17 Care time: The patient presented to the Emergency Department on the above date and was hospitalized for further evaluation of their emergent condition. Critical Care patient: No - Discharge Referral Referred to [facility] Med P.C.: No
== END 2017-11-15 23:53 | disposition home or self-care (01) ==
LOC: JER 12:57 → JERBED 21:41 → UNDOADMIN 21:41 → JER 23:53
PROC: 3E033NZ Introduction of Analgesics, Hypnotics, Sedatives into Peripheral Vein, Percutaneous Approach (ICD-10-PCS; principal; 2017-11-15)
PROC: 3E033NZ Introduction of Analgesics, Hypnotics, Sedatives into Peripheral Vein, Percutaneous Approach (ICD-10-PCS; 2017-11-15)
DX: S22.42XA Multiple fractures of ribs, left side, initial encounter for closed fracture (principal); S20.222A Contusion of left back wall of thorax, initial encounter; W11.XXXA Fall on and from ladder, initial encounter; Y93.89 Activity, other specified; Y92.89 Other specified places as the place of occurrence of the external cause; Y99.8 Other external cause status; I10 Essential (primary) hypertension; E78.5 Hyperlipidemia, unspecified; F17.210 Nicotine dependence, cigarettes, uncomplicated
CPT/HCPCS: 36415; 71250-TC; 72125-TC; 72128-TC; 72131-TC; 72146-TC; 72148-TC; 74176-TC; 80053; 81003; 82550; 82553; 84484; 85025; 99283-25; J0131

== ENCOUNTER 2017-11-24 18:49 | Emergency (ER) | payer OTHER ==
[2017-11-24 18:55] VITALS: BMI 28.1
--- NOTE | 2017-11-24 18:59 | PDOC ---
Rapid Medical Evaluation Chief Complaint: Pain Time Seen by Provider: 11/24/17 18:54 Medical Evaluation: Allergies Allergy/AdvReac Type Severity Reaction Status Date / Time No Known Allergies Allergy Verified 11/15/17 13:02 11/24/17 18:54 I have performed a brief in person evaluation of this patient. The patient presents with chief complaint of : h/o HTN and chronic constipation sent by PCP for evaluation of abdominal pain and hypotension. patient report last BM yesterday and 5 days prior to yesterday. report mild anthony -umbilical pain. no N/V. no fever Pertinent PE findings: mild tenderness to anthony-umbilcal area. no rebound or gaurding I have ordered the following: KUB x-rays The patient will proceed to the ER for further evaluation Discharge Disposition - Diagnosis Constipation Qualifiers: Constipation type: unspecified constipation type Qualified Code(s): K59.00 - Constipation, unspecified Hypotension Qualifiers: Hypotension type: unspecified hypotension type Qualified Code(s): I95.9 - Hypotension, unspecified - Referrals Referrals: Jose Rubio MD [Primary Care Provider] - - Patient Instructions - Post Discharge Activity
[2017-11-24] MEDS ORDERED: SODIUM CHLORIDE 0.9% 500 ML INFUS.BAG IV ONE (20:50)
[2017-11-24 20:58] LABS: HEMATOCRIT 27.3 % (35.4-49); HEMOGLOBIN 9.4 GM/dL (11.7-16.9); MCH 32.1 pg (25.7-33.7); MCHC 34.4 g/dl (32.0-35.9); MEAN CELL VOLUME 93.1 fl (80-96); MEAN PLT VOLUME 7.4 fl (7.5-11.1); PLATELET COUNT 311 K/MM3 (134-434); RBC 2.93 M/mm3 (4.00-5.60); RDW 12.6 % (11.9-15.9); WHITE BLOOD COUNT 11.6 K/mm3 (4.0-10.0)
--- NOTE | 2017-11-24 20:58 | PDOC ---
Attending Attestation - HPI HPI: 11/24/17 21:45 The patient is a 52 year old male, with a significant past medical history of HTN and hypercholesterolemia, who presents to the ED complaining of low blood pressure and abdominal bloating. He notes that he was at Dr. Wright office today and was sent to the ED for evaluation. He does report that he is experiencing intermittent shortness of breath. He notes that he fell 2 weeks ago and broke 6 ribs on the left side. He also notes that he is compliant with his medications. He reports that he has been taking Advil on an empty stomach. The patient denies chest pain, shortness of breath, headache and dizziness. Denies fever, chills, nausea, vomiting, diarrhea or constipation. Allergies: None Past surgical history: None reported Social History: Cigarette use (4 daily). - Physicial Exam PE: 11/24/17 21:45 Constitutional: Awake, alert, oriented. No acute distress. Head: Normocephalic. Atraumatic Eyes: PERRL. EOMI. Conjunctivae are not pale. ENT: Mucous membranes are moist and intact. Posterior pharynx without exudates or erythema. Uvula midline. Neck: Supple. Full ROM. No lymphadenopathy. Cardiovascular: Regular rate. Regular rhythm. S1, S2 regular. Distal pulses are 2+ and symmetric. Pulmonary/Chest: No evidence of respiratory distress. Clear to auscultation bilaterally No wheezing, rales or rhonchi. Abdominal: (+) Epigastric Tenderness. Soft. No rebound, guarding or rigidity. No organomegaly. No palpable masses. Good bowel sounds. Back: No CVA tenderness. Musculoskeletal: No edema. No cyanosis. No clubbing. Full range of motion in all extremities. Nocalf tenderness. Radial/pedal pulses are intact and 2+ bilaterally Skin: (+) Ecchymosis on the left flank. Neurological: Alert and oriented to person, place, and time. Cranial nerves II -XII are grossly intact. Normal speech. Strength is grossly symmetric. No sensory deficits. Psychiatric: Good eye contact. Normal interaction, affect and behavior. <Javi Londono - Last Filed: 11/24/17 21:45> - Resident Resident Name: Keith Medina - ED Attending Attestation I have performed the following: I have examined & evaluated the patient, The case was reviewed & discussed with the resident, I agree w/resident's findings & plan, Exceptions are as noted - Critical Care Time Total Critical Care Time: 35 Critical Care Statement: The care of this patient involved high complexity decision making to prevent further life threatening deterioration of the patient 's condition and/or to evaluate & treat vital organ system(s) failure or risk of failure. - Medical Decision Making 11/24/17 20:58 I, Dr. Leti Segal, DO, attest that this document has been prepared under my direction and personally reviewed by me in its entirety. I further attest, that it accurately reflects all work, treatment, procedures and medical decision -making performed by me. 11/24/17 21:24 a/p: 52yo male with mechanical fall with abd pain, sent by Dr. Rubio for eval of epigastric pain -recent L rib fx and vertebrae fx -taking tylenol and motrin without food/milk -constipation -ecchymosis to L flank -bedside ultrasound negative for ff -will repeat ct to eval for intraperitoneal injury from fall -will send labs 11/24/17 23:37 pt with splenic hematoma call placed to [facility] - case discussed with Dr. Kincaid - accepts pt in transfer 11/24/17 23:37 call placed to [facility] to obtain stat read of ct 11/24/17 23:37 pt updated that he requires transfer to [facility] 11/25/17 00:02 case discussed with Radiology security professional - grade IV splenic lac with lac through body of sleen, hemoperitoneum and large subcapsular hematoma. Dr. Kincaid updated on ct findings <Leti Segal - Last Filed: 11/25/17 00:03> Discharge Disposition <Javi Londono - Last Filed: 11/24/17 21:45> - Transfer to Acute Care Facility Receiving Facility: [facility]. Accepting Physician:: Dr. Kincaid <Leti Segal - Last Filed: 11/25/17 00:03> - Diagnosis Spleen laceration Hypotension Qualifiers: Hypotension type: unspecified hypotension type Qualified Code(s): I95.9 - Hypotension, unspecified Spleen hematoma Qualifiers: Encounter type: initial encounter Qualified Code(s): S36.029A - Unspecified contusion of spleen, initial encounter - Discharge Dispostion Disposition: TRANSFER ACUTE CARE/OTHER HOSP Condition at time of disposition: Guarded - Referrals Referrals: Jose Rubio MD [Primary Care Provider] - - Patient Instructions Printed Discharge Instructions: DI for Gastritis - Post Discharge Activity Heart Score/ECG Review - ECG Intrepretation Comment:: 11/24/17 23:37 sinus at 68, nl axis, nl interval, no acute st/t wave findings <Leti Segal - Last Filed: 11/25/17 00:03>
--- NOTE | 2017-11-24 20:58 | PDOC ---
History of Present Illness - General Chief Complaint: Pain Stated Complaint: PCP SENT ABD PAIN, HYPOTENSION Time Seen by Provider: 11/24/17 18:54 - History of Present Illness Initial Comments: The patient is a 52M with a history of HTN and hypercholesterolemia who presents from Dr. Rubio's clinic for evaluation of hypotension (SBP in 90s) and intermittent abdominal bloating. The patient reports that he currently does not have any symptoms but reports intermittent dyspnea, and white spots in his vision. He denies ever having had symptoms like this before. The patient reports being compliant with his medications and has not recently had any changes to his regimen. The patient fell 1.5 weeks ago and broke 6 ribs on his left side. 11/24/17 20:52 Past History - Past Medical History Allergies/Adverse Reactions: Allergies Allergy/AdvReac Type Severity Reaction Status Date / Time No Known Allergies Allergy Verified 11/24/17 18:54 Home Medications: Ambulatory Orders Atorvastatin Calcium 40 mg PO HS 11/15/17 Nebivolol [Bystolic -] 10 mg PO DAILY 11/15/17 Olmesartan Medoxomil [Benicar] 10 mg PO DAILY 11/15/17 Valsartan [Diovan] 160 mg PO DAILY 11/15/17 COPD: No DVT: No HTN: Yes Hypercholesterolemia: Yes Other medical history: left side ribs fx - Suicide/Smoking/Psychosocial Hx Smoking History: Never smoked Have you smoked in the past 12 months: Yes Number of Cigarettes Smoked Daily: 4 Information on smoking cessation initiated: Yes 'Breaking Loose' booklet given: 11/24/17 Hx Alcohol Use: No Drug/Substance Use Hx: No Substance Use Type: None Review of Systems - Review of Systems Able to Perform ROS?: Yes Comments:: GENERAL/CONSTITUTIONAL: No fever or chills. No weakness HEAD, EYES, EARS, NOSE AND THROAT: No current change in vision. No ear pain or discharge. No sore throat CARDIOVASCULAR: No chest pain or shortness of breath RESPIRATORY: No cough, wheezing, or hemoptysis GASTROINTESTINAL: +Diarrhea x1 yesterday; No nausea, vomiting GENITOURINARY: No dysuria, frequency, or change in urination MUSCULOSKELETAL: No joint or muscle swelling or pain. No neck or back pain SKIN: No rash NEUROLOGIC: No headache, vertigo, loss of consciousness, or change in strength/ sensation ENDOCRINE: No increased thirst. No abnormal weight change HEMATOLOGIC/LYMPHATIC: No anemia, easy bleeding, or history of blood clots ALLERGIC/IMMUNOLOGIC: No hives or skin allergy 11/24/17 20:58 Is the patient limited Swedish proficient: No *Physical Exam - Vital Signs Last Vital Signs Temp Pulse Resp BP Pulse Ox 98.7 F 71 18 93/55 98 11/24/17 18:51 11/24/17 18:51 11/24/17 18:51 11/24/17 18:51 11/24/17 18:51 - Physical Exam Comments: GENERAL: Awake, alert, and fully oriented, in no acute distress HEAD: No signs of trauma, normocephalic, atraumatic EYES: PERRLA, EOMI, sclera anicteric, conjunctiva clear ENT: Hearing grossly normal, nares patent, oropharynx clear without exudates. Moist mucosa NECK: Normal ROM, supple, no lymphadenopathy LUNGS: No distress, speaks full sentences, clear to auscultation bilaterally HEART: Regular rate and rhythm, normal S1 and S2, no murmurs appreciated, peripheral pulses normal and equal bilaterally ABDOMEN: Soft, left lateral TTP over ribs, with overlying ecchymosis, normoactive bowel sounds. No guarding, no rebound. EXTREMITIES : Normal inspection, Normal range of motion, no edema. No clubbing or cyanosis NEUROLOGICAL: Cranial nerves II through XII grossly intact. Normal speech, normal gait, no focal sensorimotor deficits SKIN: Warm, Dry, ecchymosis as noted above 11/24/17 21:15 ED Treatment Course - LABORATORY CBC & Chemistry Diagram: 11/24/17 20:50 11/24/17 20:50 - RADIOLOGY Radiology Studies Ordered: Category Date Time Status CHEST PA & LAT [RAD] Stat Radiology 11/24/17 20:49 Ordered Medical Decision Making - Medical Decision Making The patient is a 52M w/ a history of HTN and hyperlipidemia who presents from clinic (Dr. Rubio) for evaluation of hypotension and abdominal pain. ED Course CMP, CBC, Trop I, UA, FOBT ECG CT CAP w/ IV contrast Patient w/o leukocytosis Hgb 9.4 11/24/17 21:18 Trop I neg 11/24/17 21:35 FOBT negative s/p 1L NS 11/24/17 21:44 Patient noted to have spleen laceration on CT. Plan to transfer patient to [facility] for further evaluation by Trauma Surgery. Trauma initially called at approximately 2330. T/S and INR/PT/PTT sent. INR < 2.0 11/24/17 23:51 Dispo: Patient with Grade 4 splenic laceration, subcapsular hematoma, and pelvic fluid/hemoperitonium. Case discussed with [facility] who accepted. 11/25/17 00:02 *DC/Admit/Observation/Transfer Diagnosis at time of Disposition: Hypotension Qualifiers: Hypotension type: unspecified hypotension type Qualified Code(s): I95.9 - Hypotension, unspecified Spleen hematoma Qualifiers: Encounter type: initial encounter Qualified Code(s): S36.029A - Unspecified contusion of spleen, initial encounter Spleen laceration Qualifiers: Encounter type: initial encounter Qualified Code(s): S36.039A - Unspecified laceration of spleen, initial encounter - Discharge Dispostion Disposition: TRANSFER ACUTE CARE/OTHER HOSP Condition at time of disposition: Guarded Decision to Admit order: No - Referrals Referrals: Jose Rubio MD [Primary Care Provider] - - Patient Instructions Printed Discharge Instructions: DI for Gastritis - Post Discharge Activity
[2017-11-24] MEDS ORDERED: LIDOCAINE VISCOUS 2% ORAL/TOP 20 ML UNIT-DOSE CUP MM ONE (21:16)
[2017-11-24] MEDS ORDERED: MAG HYDROX/AL HYDROX/SIMETH 30 ML UNIT-DOSE CUP PO ONE (21:16)
[2017-11-24] MEDS ORDERED: SUCRALFATE 1 GM TABLET (FP) PO ONE (21:17)
[2017-11-24 21:27] LABS: ALBUMIN 3.4 g/dl (3.4-5.0); ANION GAP 10 MMOL/L (8-16); BILIRUBIN,TOTAL 0.4 mg/dL (0.2-1.0); BLOOD UREA NITROGEN 38 mg/dL (7-18); CALCIUM 8.8 mg/dL (8.5-10.1); CHLORIDE 108 mmol/L (98-107); CO2 24 mmol/L (21-32); CREATININE 1.1 mg/dL (0.7-1.3); GLUCOSE,RANDOM 91 mg/dL (74-106); POTASSIUM 4.5 mmol/L (3.5-5.1); SGOT/AST 12 U/L (15-37); SGPT/ALT 21 U/L (13-61); SODIUM 142 mmol/L (136-145); TOT PROT 6.5 g/dl (6.4-8.2)
[2017-11-24 21:28] LABS: ALK PHOS 77 U/L (45-117)
[2017-11-24] MEDS ORDERED: MAG HYDROX/AL HYDROX/SIMETH 30 ML UNIT-DOSE CUP ONE (21:55)
[2017-11-24] MEDS ORDERED: LIDOCAINE VISCOUS 2% ORAL/TOP 20 ML UNIT-DOSE CUP ONE (21:55)
[2017-11-24] MEDS ORDERED: SUCRALFATE 1 GM TABLET (FP) ONE (21:55)
[2017-11-24 22:25] LABS: URINE APPEARANCE CLEAR; URINE BILIRUBIN NEGATIVE (<2.0 mg/dL); URINE COLOR YELLOW; URINE GLUCOSE (UA) NEGATIVE (NEGATIVE); URINE KETONE NEGATIVE (NEGATIVE); URINE LEUK ESTERASE NEGATIVE (NEGATIVE); URINE NITRITE NEGATIVE (NEGATIVE); URINE PROTEIN NEGATIVE (NEGATIVE); URINE UROBILINOGEN NEGATIVE mg/dL (0.2-1.0)
[2017-11-24 23:41] LABS: INR 1.12 (0.83-1.09); PROTHROMBIN TIME (PATIENT) 12.7 SEC (9.7-13.0)
[2017-11-25] MEDS ORDERED: SODIUM CHLORIDE 0.9% 1000 ML INFUS.BAG IV ONE (00:01)
[2017-11-25 01:26] VITALS: BP 140/78; PULSE 74; TEMP 98.2
--- NOTE | 2017-11-25 15:39 | EKG ---
Test Reason : Blood Pressure : / mmHG Vent. Rate : 068 BPM Atrial Rate : 068 BPM P-R Int : 180 ms QRS Dur : 086 ms QT Int : 396 ms P-R-T Axes : 016 013 016 degrees QTc Int : 421 ms NORMAL SINUS RHYTHM NORMAL ECG NO PREVIOUS ECGS AVAILABLE Confirmed by MELE FORTE MD ([id number]) on 11/25/2017 3:38:56 PM Referred By: Confirmed By:MELE FORTE MD
== END 2017-11-25 01:00 | disposition short-term general hospital (02) ==
LOC: JER 18:49
PROC: 3E0337Z Introduction of Electrolytic and Water Balance Substance into Peripheral Vein, Percutaneous Approach (ICD-10-PCS; principal; 2017-11-24)
DX: I95.9 Hypotension, unspecified (principal); S36.029A Unspecified contusion of spleen, initial encounter; S36.039A Unspecified laceration of spleen, initial encounter; E78.00 Pure hypercholesterolemia, unspecified; Z87.891 Personal history of nicotine dependence; X58.XXXA Exposure to other specified factors, initial encounter; Y93.89 Activity, other specified; Y92.9 Unspecified place or not applicable
CPT/HCPCS: 36415; 71260-TC; 74018-TC-FY; 74177-TC; 80053; 81003; 82272; 84484; 85027; 85610; 85730; 86850; 86900; 86901; 93005; 93010; 99284-25; J7030

== ENCOUNTER 2023-11-16 09:37 | Emergency (ER) | payer OTHER ==
[2023-11-16 09:46] VITALS: PULSE 70; RESP 18; TEMP 97.8; BMI 30.9
[2023-11-16] MEDS ORDERED: LIDOCAINE 4% PATCH TP ONE (10:11)
[2023-11-16] MEDS: LIDOCAINE 4% PATCH TP ONE (10:20)
[2023-11-16 11:10] VITALS: BP 164/96
== END 2023-11-16 11:15 | disposition home or self-care (01) ==
LOC: JERFT 09:37
DX: R07.89 Other chest pain (principal); M54.6 Pain in thoracic spine; W10.9XXA Fall (on) (from) unspecified stairs and steps, initial encounter; Y93.01 Activity, walking, marching and hiking
CPT/HCPCS: 71101-TC-RT-FY; 99283-25